=== PATIENT | female | born 1955 | race African-American/Black ===

== ENCOUNTER 2017-02-10 16:55 | Emergency (ER) | payer SELFPAY ==
[2017-02-10 17:04] VITALS: BP 143/86
--- NOTE | 2017-02-10 17:30 | ER Document Report ---
HPI - HPI Pain Level: 4 Notes: Patient is a 61-year-old female with a history of scoliosis presents to the ED complaining of right lower back/right buttock pain 2-3 days. Patient states that she was working lifting something and thought she pulled something in that area. Patient states that she is still ambulatory, but would like to return back to work and needs a work note to return. Patient states that the pain will occasionally radiate down into her lower buttock. No other concerns or complaints at this time. Denies any headache, fever, neck pain, chest pain, palpitations, syncope, cough, shortness of breath, wheeze, dyspnea, abdominal pain, nausea/vomiting/diarrhea, urinary retention, dysuria, hematuria, loss of control of bowel or bladder, numbness/tingling, saddle anesthesia, muscle paralysis/weakness, or rash. Patient denies any significant past medical history. Denies any injections or procedures to her back. Denies any IV drug use. - ROS Notes: REVIEW OF SYSTEMS: CONSTITUTIONAL : Denies fever, chills, or sweats. Denies recent illness. EENT: Denies eye, ear, throat, or mouth pain or symptoms. Denies nasal or sinus congestion or discharge. Denies throat, tongue, or mouth swelling or difficulty swallowing. CARDIOVASCULAR: Denies chest pain. Denies palpitations or racing or irregular heart beat. Denies ankle edema. RESPIRATORY: Denies cough, cold, or chest congestion. Denies shortness of breath, difficulty breathing, or wheezing. GASTROINTESTINAL: Denies abdominal pain or distention. Denies nausea, vomiting , or diarrhea. Denies blood in vomitus, stools, or per rectum. Denies black, tarry stools. Denies constipation. GENITOURINARY: Denies difficulty urinating, painful urination, burning, frequency, blood in urine, or discharge. MUSCULOSKELETAL: See HPI SKIN: Denies rash, lesions or sores. NEUROLOGICAL: Denies confusion or altered mental status. Denies passing out or loss of consciousness. Denies dizziness or lightheadedness. Denies headache. Denies weakness or paralysis or loss of use of either side. Denies problems with gait or speech. Denies sensory loss, numbness, or tingling. ALL OTHER SYSTEMS REVIEWED AND NEGATIVE. Dictation was performed using [email or web address] voice recognition software - REPRODUCTIVE Reproductive: DENIES: : - DERM Skin Color: Normal Past Medical History - Social History Smoking Status: Unknown if Ever Smoked Family History: Reviewed & Not Pertinent Patient has homicidal ideation: No Endocrine Medical History: Reports: Hx Hypothyroidism Renal/ Medical History: Denies: Hx Peritoneal Dialysis Past Surgical History: Reports: Hx Section - Immunizations Hx Diphtheria, Pertussis, Tetanus Vaccination: Yes Vertical Provider Document - CONSTITUTIONAL Agree With Documented VS: Yes Notes: PHYSICAL EXAMINATION: GENERAL: Well-appearing, well-nourished and in no acute distress. LUNGS: Breath sounds clear to auscultation bilaterally and equal. No wheezes rales or rhonchi. HEART: Regular rate and rhythm without murmurs, rubs, gallops. ABDOMEN: Soft, nontender, nondistended abdomen. No guarding, no rebound. No masses appreciated. Normal bowel sounds present. No CVA tenderness bilaterally. no pulsatile mass. Musculoskeletal: LE's b/l: FROM to passive/active. Strength 5+/5. No deficits noted. Back: No ecchymosis, abrasion, laceration, or signs of trauma. FROM to passive /active. Strength 5+/5. Scoliosis noted. SLR negative. + tenderness to the rt SI jt. No vertebral point tenderness or paraspinal tenderness. Reflexes 2+ . N/V intact distal. Extremities: No cyanosis, clubbing, or edema b/l. Peripheral pulses 2+. Capillary refill less than 3 seconds. NEUROLOGICAL: Normal speech, normal gait. Normal sensory, motor exams PSYCH: Normal mood, normal affect. SKIN: Warm, Dry, normal turgor, no rashes or lesions noted. - INFECTION CONTROL TRAVEL OUTSIDE OF THE [place] IN LAST 30 DAYS: No - RESPIRATORY O2 Sat by Pulse Oximetry: 99 Course - Re-evaluation Re-evalutation: 02/10/17 17:35 Patient is an afebrile, well-hydrated, 61-year-old female who presents to the ED with acute sacroiliitis of the right side. Vitals are stable. PE otherwise unremarkable for any focal neurological deficits. Patient declined any injection medication today. I will send her home with a prescription for Voltaren gel and Lidoderm patches that she may use as directed. Low suspicion for any meningitis, fracture, expanding/ruptured AAA, cauda equina syndrome, epidural mass lesion/abscess, herniated disc causing severe spinal stenosis, or other systemic infection at this time. Patient is aware that his condition can change from initial presentation and that he needs monitor symptoms closely for any acute changes. Conservative measures otherwise for symptoms as reviewed. Recheck with your PCM this week. Consider consult with orthopedics/physical therapy. Return to the ED with any worsening/concerning symptoms otherwise as reviewed in discharge. Patient is in agreement. - Vital Signs Vital signs: Temp Pulse Resp BP Pulse Ox 97.6 F 55 L 20 143/86 H 99 02/10/17 17:01 02/10/17 17:01 02/10/17 17:01 02/10/17 17:01 02/10/17 17:01 Discharge - Discharge Clinical Impression: Sacroiliitis Condition: Stable Disposition: HOME, SELF-CARE Instructions: Ice Packs ([facility]), Low Back Pain ([facility]), Warm Packs ([facility]) Additional Instructions: Rest, Ice, Compression, Elevation Tylenol/ibuprofen as needed Light stretches daily Strength exercises as able Moist heat and massage may help F/u with your PCP in 2-3 days for a recheck Consider consult(s) with Orthopedics/physical therapy for ongoing/worsening symptoms Return to the ED with any worsening symptoms and/or development of fever, headache, chest pain, palpitations, syncope, shortness of breath, trouble breathing, abdominal pain, n/v/d, blood in stool/urine, loss of control of bowel /bladder, urinary retention, muscle weakness/paralysis, saddle anesthesia, numbness/tingling, or other worsening symptoms that are concerning to you. Prescriptions: Diclofenac Sodium [Voltaren] 4 gm TP QID PRN #100 gel..gm. PRN Reason: Lidocaine [Lidoderm] 1 each TP DAILY PRN #10 adh..patch PRN Reason: Forms: Elevated Blood Pressure, Return to Work Referrals: [facility] [Provider Group] - Follow up as needed
== END 2017-02-10 18:11 | disposition home or self-care (01) ==
LOC: ER 16:55
DX: M46.1 Sacroiliitis, not elsewhere classified (principal); M54.5 Low back pain; M79.1 Myalgia
CPT/HCPCS: 99283

== ENCOUNTER 2017-03-10 11:47 | Emergency (ER) | payer SELFPAY ==
--- NOTE | 2017-03-10 12:27 | ER Document Report ---
ED Medical Screen (RME) - General Chief Complaint: Trouble Walking Stated Complaint: BALANCE ISSUES Time Seen by Provider: 03/10/17 12:17 Mode of Arrival: Ambulatory Information source: Patient TRAVEL OUTSIDE OF THE [place] IN LAST 30 DAYS: No - HPI Patient complains to provider of: Left leg weakness Notes: 03/10/17 12:26 Patient is a 61-year-old female presenting to the emergency room complaining of feeling as though she is leaning to the left when she was ambulating, reporting that she feels as though her left leg is weaker than her right leg, she denies any injury or trauma, no pain in the legs, no headache, she does have a history of hypothyroidism and takes levothyroxine - Related Data Allergies/Adverse Reactions: Penicillins Allergy (Verified 03/10/17 12:15) Past Medical History Endocrine Medical History: Reports: Hx Hypothyroidism Renal/ Medical History: Denies: Hx Peritoneal Dialysis Past Surgical History: Reports: Hx Section - Immunizations Hx Diphtheria, Pertussis, Tetanus Vaccination: Yes Physical Exam - Vital signs Vitals: Temp Pulse Resp BP Pulse Ox 97.7 F 72 20 142/85 H 100 03/10/17 12:09 03/10/17 12:09 03/10/17 12:09 03/10/17 12:09 03/10/17 12:09 Course - Vital Signs Vital signs: Temp Pulse Resp BP Pulse Ox 97.7 F 72 20 142/85 H 100 03/10/17 12:09 03/10/17 12:09 03/10/17 12:09 03/10/17 12:09 03/10/17 12:09
[2017-03-10 13:05] LABS: ABSOLUTE EOSINOPHILS # (AUTO) 0.1 10^3/uL (0.0-0.6); ABSOLUTE LYMPHOCYTES (AUTO) 1.8 10^3/uL (0.5-4.7); ABSOLUTE MONOCYTES (AUTO) 0.5 10^3/uL (0.1-1.4); ABSOLUTE NEUT (AUTO) 1.9 10^3/uL (1.7-8.2); BASOPHILS % (AUTO) 0.9 % (0-2); EOSINOPHILS % (AUTO) 2.5 % (0-6); HEMATOCRIT 47.3 % (36.0-47.0); HGB HCT DIFFERENCE 0.7; LYMPHOCYTES % (AUTO) 41.5 % (13-45); MEAN CORPUSCULAR HGB CONC 33.9 g/dL (32.0-36.0); MEAN CORPUSCULAR VOLUME 92 fl (80-97); MONOCYTES % (AUTO) 10.7 % (3-13); RED BLOOD COUNT 5.16 10^6/uL (3.72-5.28); RED CELL DISTRIBUTION WIDTH 13.6 % (11.5-14.0); SEGMENTED NEUTROPHILS % (AUTO) 44.4 % (42-78); WHITE BLOOD COUNT 4.3 10^3/uL (4.0-10.5)
[2017-03-10 13:25] LABS: ALANINE AMINOTRANSFERASE 28 U/L (9-52); ALBUMIN 4.5 g/dL (3.5-5.0); ALKALINE PHOSPHATASE 106 U/L (38-126); ANION GAP 8 (5-19); ASPARTATE AMINO TRANSFERASE 27 U/L (14-36); BILIRUBIN,DIRECT 0.4 mg/dL (0.0-0.4); BILIRUBIN,TOTAL 0.8 mg/dL (0.2-1.3); BLOOD UREA NITROGEN 12 mg/dL (7-20); CALCIUM 10.2 mg/dL (8.4-10.2); CARBON DIOXIDE 29 mmol/L (22-30); CHLORIDE 107 mmol/L (98-107); CREATINE KINASE 107 U/L (30-135); CREATININE RESULT 1.05 mg/dL (0.52-1.25); GLUCOSE 78 mg/dL (75-110); POTASSIUM 4.2 mmol/L (3.6-5.0); SODIUM 143.8 mmol/L (137-145); TOTAL PROTEIN 7.8 g/dL (6.3-8.2)
[2017-03-10 13:35] LABS: CREATINE KINASE MB 1.66 ng/mL (<4.55)
[2017-03-10 13:36] LABS: TROPONIN I < 0.012 ng/mL
[2017-03-10 13:58] LABS: PROTHROMBIN TIME 13.6 SEC (11.4-15.4)
[2017-03-10 14:00] LABS: PARTIAL THROMBOPLASTIN TIME 36.2 SEC (23.5-35.8)
--- NOTE | 2017-03-10 14:05 | ER Document Report ---
ED General - General Chief Complaint: Trouble Walking Stated Complaint: BALANCE ISSUES Time Seen by Provider: 03/10/17 12:17 Mode of Arrival: Ambulatory Information source: Patient Notes: 61 yr old female presents with complaints of wanting her thyroid medication refilled. pt notes she is on synthroid 0.112 daily and only has 2 pills left. pt wants a 90 day suppply so she does not have to come back to the ED> pt has a pcp but cannot afford to see here pt also notes that her heart rate is always slow and she keeps having ekgs since its so slow, pt denies any smypotms there pt also notes that she has scoliosis and this causes her pain when she walks , she denies any new difficulty ambulating. TRAVEL OUTSIDE OF THE [place] IN LAST 30 DAYS: No - HPI Onset: Other Onset/Duration: Persistent Quality of pain: Achy Severity: Mild Pain Level: 1 Associated symptoms: Body/muscle aches, Other Exacerbated by: Denies Relieved by: Denies Similar symptoms previously: Yes Recently seen / treated by doctor: Yes - Related Data Allergies/Adverse Reactions: Penicillins Allergy (Verified 03/10/17 12:15) Past Medical History - General Information source: Patient - Social History Smoking Status: Current Every Day Smoker Cigarette use (# per day): Yes Chew tobacco use (# tins/day): No Smoking Education Provided: No Frequency of alcohol use: None Drug Abuse: None Family History: Reviewed & Not Pertinent Patient has suicidal ideation: No Patient has homicidal ideation: No Endocrine Medical History: Reports: Hx Hypothyroidism Renal/ Medical History: Denies: Hx Peritoneal Dialysis Past Surgical History: Reports: Hx Section - Immunizations Hx Diphtheria, Pertussis, Tetanus Vaccination: Yes Review of Systems - Review of Systems Notes: REVIEW OF SYSTEMS: CONSTITUTIONAL : Denies fever, chills, or sweats. Denies recent illness. EENT: Denies eye, ear, throat, or mouth pain or symptoms. Denies nasal or sinus congestion or discharge. Denies throat, tongue, or mouth swelling or difficulty swallowing. CARDIOVASCULAR: Denies chest pain. Denies palpitations or racing or irregular heart beat. Denies ankle edema. RESPIRATORY: Denies cough, cold, or chest congestion. Denies shortness of breath, difficulty breathing, or wheezing. GASTROINTESTINAL: Denies abdominal pain or distention. Denies nausea, vomiting , or diarrhea. Denies blood in vomitus, stools, or per rectum. Denies black, tarry stools. Denies constipation. GENITOURINARY: Denies difficulty urinating, painful urination, burning, frequency, blood in urine, or discharge. FEMALE GENITOURINARY: Denies vaginal bleeding, heavy or abnormal periods, irregular periods. Denies vaginal discharge or odor. MUSCULOSKELETAL: Admits to sciatic pain. SKIN: Denies rash, lesions or sores. HEMATOLOGIC : Denies easy bruising or bleeding. LYMPHATIC: Denies swollen, enlarged glands. NEUROLOGICAL: Denies confusion or altered mental status. Denies passing out or loss of consciousness. Denies dizziness or lightheadedness. Denies headache. Denies weakness or paralysis or loss of use of either side. Denies problems with gait or speech. Denies sensory loss, numbness, or tingling. Denies seizures. PSYCHIATRIC: Denies anxiety or stress. Denies depression, suicidal ideation, or homicidal ideation. ALL OTHER SYSTEMS REVIEWED AND NEGATIVE. PHYSICAL EXAMINATION: GENERAL: Well-appearing, well-nourished and in no acute distress. HEAD: Atraumatic, normocephalic. EYES: Pupils equal round and reactive to light, extraocular movements intact, conjunctiva are normal. ENT: Nares patent, oropharynx clear without exudates. Moist mucous membranes. NECK: Normal range of motion, supple without lymphadenopathy LUNGS: Breath sounds clear to auscultation bilaterally and equal. No wheezes rales or rhonchi. HEART: Regular rate and rhythm without murmurs ABDOMEN: Soft, nontender, nondistended abdomen. No guarding, no rebound. No masses appreciated. Female : deferred Musculoskeletal: Normal range of motion, no pitting or edema. No cyanosis. NEUROLOGICAL: Cranial nerves grossly intact. Normal speech, normal gait. Normal sensory, motor exams PSYCH: Normal mood, normal affect. SKIN: Warm, Dry, normal turgor, no rashes or lesions noted. Dictation was performed using [employer] voice recognition software Physical Exam - Vital signs Vitals: Temp Pulse Resp BP Pulse Ox 97.7 F 72 20 142/85 H 100 03/10/17 12:09 03/10/17 12:09 03/10/17 12:09 03/10/17 12:03/10/17 12:09 Course - Re-evaluation Re-evalutation: 03/10/17 14:56 Patient states all the workup we are doing on her is unnecessary as she is only here for a prescription, unfortunately TSH hemolyzed twice and they want to stick her third time and patient states she was just going to go somewhere else to get her medications. Therefore I did just fill her medications without receiving the results of any lab work today just to appease the patient. I explained to her this is not a complete workup she states she understood and wished to leave After performing a Medical Screening Examination, I estimate there is LOW risk for INTRACRANIAL HEMORRHAGE, ISCHEMIC CVA, MALIGNANT DYSRHYTHMIA, ACUTE CORONARY SYNDROME, MENINGITIS, PULMONARY EMBOLISM, or SEPSIS thus I consider the discharge disposition reasonable. I have reevaluated this patient multiple times and no significant life threatening changes are noted. The patient and I have discussed the diagnosis and risks, and we agree with discharging home with close follow-up with the understanding that symptoms and presentations can change. We also discussed returning to the Emergency Department immediately if new or worsening symptoms occur. We have discussed the symptoms which are most concerning (e.g., changing or worsening pain, weakness, vomiting, fever) that necessitate immediate return. - Vital Signs Vital signs: Temp Pulse Resp BP Pulse Ox 97.7 F 72 14 155/98 H 97 03/10/17 12:09 03/10/17 12:09 03/10/17 14:01 03/10/17 14:01 03/10/17 14:01 - Laboratory Result Diagrams: 03/10/17 12:43 03/10/17 12:43 Laboratory results interpreted by me: 03/10/17 03/10/17 03/10/17 12:43 12:43 13:23 Hgb 16.0 H Hct 47.3 H Plt Count 100 L APTT 36.2 H Est GFR (Non-Af Amer) 54 L - Diagnostic Test Radiology reviewed: Image reviewed, Reports reviewed - EKG Interpretation by Me EKG shows normal: Sinus rhythm, [place], Intervals, QRS Complexes Discharge - Discharge Clinical Impression: Medication refill Hypothyroidism Qualifiers: Hypothyroidism type: unspecified Qualified Code(s): E03.9 - Hypothyroidism, unspecified Condition: Stable Disposition: HOME, SELF-CARE Instructions: Thyroid Hormone ([facility]) Additional Instructions: Follow up with your physician tomorrow for further care or return to the ED IMMEDIATELY if symptoms worsen or new concerns occur. If you cannot afford to follow up with your primary care physician a list of low cost clinics have been provided at the end of your discharge papers as well. Prescriptions: Levothyroxine Sodium [Synthroid 0.112 mg Tablet] 0.112 mg PO DAILY #90 tablet
--- NOTE | 2017-03-10 14:05 | RADIOLOGY REPORT (SQ) ---
EXAM DESCRIPTION: CT HEAD WITHOUT COMPLETED DATE/TIME: 03/10/2017 1:09 pm REASON FOR STUDY: left leg weakness COMPARISON: CT brain 10/09/2007 TECHNIQUE: Axial images acquired through the brain without intravenous contrast. Images reviewed wi th bone, brain and subdural windows. Images stored on PACS. All CT scanners at this facility use dose modulation, iterative reconstruction, and/or weight based d osing when appropriate to reduce radiation dose to as low as reasonably achievable (ALARA). [facility]: Dose Right [facility]: CareDose [facility]: Dose Right [facility]: Teradose 4D [facility]: Nordic Neurostim RADIATION DOSE: Up-to-date CT equipment and radiation dose reduction techniques were employed. CTDIv ol: 64.6 mGy. DLP: 1163 mGy-cm. mGy. LIMITATIONS: None. FINDINGS: VENTRICLES: Normal size and contour. CEREBRUM: No masses. No hemorrhage. No midline shift. No evidence for acute infarction. Normal gra y/white matter differentiation. No areas of low density in the white matter. CEREBELLUM: No masses. No hemorrhage. No alteration of density. No evidence for acute infarction. EXTRAAXIAL SPACES: No fluid collections. No masses. ORBITS AND GLOBE: No intra- or extraconal masses. Normal contour of globe without masses. CALVARIUM: No fracture. PARANASAL SINUSES: No fluid or mucosal thickening. SOFT TISSUES: No mass or hematoma. OTHER: No other significant finding. IMPRESSION: NORMAL BRAIN CT WITHOUT CONTRAST. EVIDENCE OF ACUTE STROKE: NO. COMMENT: Quality ID # [id number]: Final reports with documentation of one or more dose reduction techniques (e.g., Automated exposure control, adjustment of the mA and/or kV according to patient size, use of iterative reconstruction technique) TECHNICAL DOCUMENTATION: JOB ID: [id number] All Rights Reserved
[2017-03-10 14:06] VITALS: BP 155/98
--- NOTE | 2017-03-10 14:06 | RADIOLOGY REPORT (SQ) ---
EXAM DESCRIPTION: CHEST SINGLE VIEW COMPLETED DATE/TIME: 03/10/2017 1:13 pm REASON FOR STUDY: left leg weakness COMPARISON: AP chest 10/09/2007 CT chest abdomen pelvis 09/10/2008 EXAM PARAMETERS: NUMBER OF VIEWS: One view. TECHNIQUE: Single frontal radiographic view of the chest acquired. RADIATION DOSE: NA LIMITATIONS: None. FINDINGS: LUNGS AND PLEURA: 1.7 cm nodule in the right upper lobe. This is worrisome for either a s mall primary or metastatic tumor. Lungs are otherwise well inflated and clear. No pleural effusion. No pneumothorax. MEDIASTINUM AND HILAR STRUCTURES: No masses. Contour normal. HEART AND VASCULAR STRUCTURES: Heart normal in size. Normal vasculature. BONES: No acute findings. HARDWARE: None in the chest. OTHER: No other significant finding. IMPRESSION: 1.7 cm nodule right upper lobe. TECHNICAL DOCUMENTATION: JOB ID: [id number]
--- NOTE | 2017-03-11 14:35 | EKG REPORT ---
SEVERITY:- ABNORMAL ECG - SINUS BRADYCARDIA VENTRICULAR PREMATURE COMPLEX PROBABLE LEFT ATRIAL ABNORMALITY LEFT AXIS DEVIATION NONSPECIFIC T ABNORMALITIES, ANT-LAT LEADS : Confirmed by: Penny Madrid MD 11-Mar-2017 14:33:40
== END 2017-03-10 14:16 | disposition home or self-care (01) ==
LOC: ER 11:47
DX: E03.9 Hypothyroidism, unspecified (principal); M79.1 Myalgia; Z88.0 Allergy status to penicillin; F17.210 Nicotine dependence, cigarettes, uncomplicated
CPT/HCPCS: 36415; 70450; 71010; 80053; 82550; 82553; 84484; 85025; 85610; 85730; 93005; 93010; 99283